=== PATIENT | male | born 1970 | race Caucasian/White ===

== ENCOUNTER 2019-06-19 07:05 | Day surgery (SDC) | payer OTHER ==
[~2019-06-19 07:05] MED LIST: CEFAZOLIN 2 GM/50 ML (PMX) 50 ML IVPB
[2019-06-19] MEDS: SOD CHLORIDE 0.9% 1,000 ML IV (07:40)
[2019-06-19 07:53] LABS: ADD MAN DIFF? NO
[2019-06-19] MEDS ORDERED: LIDOCAINE 2% (MDV) 20 ML INJ (07:54)
[2019-06-19 07:57] LABS: WHITE BLOOD COUNT 9.4 10^3/ul (4.8-10.8)
[2019-06-19 07:57] LABS: BASOPHIL # 0.1 10^3/ul (0.0-0.1); BASOPHILS % 0.5 % (0.0-2.0); EOSINOPHILS # 0.4 10^3/ul (0.0-0.5); EOSINOPHILS % 4.6 % (0.0-7.0); HEMATOCRIT 40.7 % (42.0-52.0); HEMOGLOBIN 13.7 g/dl (14.0-18.0); LYMPHOCYTES # 2.6 10^3/ul (0.8-2.9); LYMPHOCYTES % 27.5 % (15.0-51.0); MEAN CORPUSCULAR HEMOGLOBIN 32.2 pg (29.0-33.0); MEAN CORPUSCULAR HGB CONC 33.7 g/dl (32.0-37.0); MEAN CORPUSCULAR VOLUME 95.8 fl (82.0-101.0); MONOCYTE # 0.7 10^3/ul (0.3-0.9); MONOCYTES % 6.9 % (0.0-11.0); NEUTROPHIL # 5.7 10^3/ul (1.6-7.5); NEUTROPHILS % 60.1 % (39.0-77.0); PLATELET COUNT 228 10^3/UL (140-415); RED BLOOD COUNT 4.25 10^6/ul (4.70-6.10); RED CELL DISTRIBUTION WIDTH 14.6 % (11.5-14.5)
[2019-06-19 08:18] LABS: ALANINE AMINOTRANSFERASE 27 IU/L (13-69); ALBUMIN 3.8 g/dl (3.3-4.9); ALBUMIN/GLOBULIN RATIO 1.31; ALKALINE PHOSPHATASE 58 IU/L (42-121); ANION GAP 7 (5-13); ASPARTATE AMINO TRANSFERASE 23 IU/L (15-46); BILIRUBIN,INDIRECT 0.4 mg/dl (0-1.1); BILIRUBIN,TOTAL 0.4 mg/dl (0.2-1.3); CALCIUM 8.7 mg/dl (8.4-10.2); CARBON DIOXIDE 25 mmol/L (21-31); CHLORIDE 106 mmol/L (97-110); CREATININE 0.76 mg/dl (0.61-1.24); Estimated GFR > 60 mL/min (>60); GLUCOSE 102 mg/dl (70-220); POTASSIUM 4.1 mmol/L (3.5-5.1); TOTAL PROTEIN 6.7 g/dl (6.1-8.1)
[2019-06-19 08:20] LABS: INR 0.87; PROTIME 11.9 Sec (11.9-14.9); PT RATIO 0.9
[2019-06-19 08:23] LABS: BLOOD UREA NITROGEN 29 mg/dl (7-20); SODIUM 138 mmol/L (135-144)
[2019-06-19] MEDS ORDERED: FENTAnyl 50 MCG/ML VIAL IV ×3 (08:30)
[2019-06-19] MEDS ORDERED: MEPERIDINE 25 MG INJ IV (08:30)
[2019-06-19] MEDS ORDERED: ONDANSETRON 4 MG INJ IV (08:30)
[2019-06-19] MEDS ORDERED: DIPHENHYDRAMINE 50 MG INJ IV (08:30)
[2019-06-19] MEDS ORDERED: ALBUTEROL 0.083% (NEB) 2.5 MG/3 ML AMP HHN (08:30)
[2019-06-19] MEDS ORDERED: HYDROmorphONE 1 MG/5 ML IV SYRINGE IV ×3 (08:30)
[2019-06-19] MEDS ORDERED: METOCLOPRAMIDE 10 MG INJ IV (08:30)
[2019-06-19] MEDS ORDERED: CEFAZOLIN 1 GM INJ (08:47)
[2019-06-19] MEDS ORDERED: SUCCINYLCHOLINE CHLORIDE 100 MG/5 ML SYG IV (08:47)
[2019-06-19] MEDS ORDERED: PROPOFOL 20 ML (08:47)
[2019-06-19] MEDS ORDERED: LIDOCAINE 100 MG SYRINGE (08:47)
[2019-06-19] MEDS ORDERED: ROCURONIUM 50 MG INJ (08:47)
[2019-06-19] MEDS ORDERED: FENTAnyl 50 MCG/ML VIAL (08:47)
[2019-06-19] MEDS ORDERED: SUGAMMADEX SODIUM 200 MG/2 ML VIAL IV ×2 (09:00→09:02)
[2019-06-19] MEDS: BUPIVACAINE 0.25% (MPF) 30 ML INJ (09:12)
[2019-06-19] MEDS ORDERED: HYDROCODONE/APAP (5/325) TAB PO (09:30)
== END 2019-06-19 11:55 | disposition home or self-care (01) ==
LOC: SDS 07:05
DX: D17.22 Benign lipomatous neoplasm of skin and subcutaneous tissue of left arm (principal); R94.31 Abnormal electrocardiogram [ECG] [EKG]
CPT/HCPCS: 14020; 71045; 80053; 85025; 85610; 85730; 88307; 93005

== ENCOUNTER 2019-06-29 06:40 | Emergency (ER) | payer OTHER | END 2019-06-29 07:33 | disposition home or self-care (01) | LOC: E/R 06:40 | DX: L03.114 Cellulitis of left upper limb (principal); Z87.891 Personal history of nicotine dependence | CPT/HCPCS: 99283; Z7502 ==